=== PATIENT | male | born 1980 | race African-American/Black ===

== ENCOUNTER 2021-08-28 13:24 | Emergency (ER) | payer OTHER ==
[2021-08-28] MEDS ORDERED: LIDOCAINE HCL 2% (50ML VIAL) INF ONE (13:55)
[2021-08-28] MEDS ORDERED: DIPHTH,PERTUSS(ACELL),TET 0.5 ML DISP.SYRIN IM ONE ×2 (13:55→14:03)
[2021-08-28] MEDS ORDERED: LIDOCAINE HCL 2% (20ML MULTI-DOSE VIAL) ONE (14:03)
[2021-08-28 14:35] VITALS: BP 135/75; PULSE 73; TEMP 98.3; BMI 31.0
== END 2021-08-28 15:29 | disposition home or self-care (01) ==
LOC: FER 13:24
PROC: 3E0234Z Introduction of Serum, Toxoid and Vaccine into Muscle, Percutaneous Approach (ICD-10-PCS; principal; 2021-08-28)
DX: S61.012A Laceration without foreign body of left thumb without damage to nail, initial encounter (principal); W26.8XXA Contact with other sharp object(s), not elsewhere classified, initial encounter
CPT/HCPCS: 90715; 99284-25

== ENCOUNTER 2021-09-05 08:52 | Emergency (ER) | payer OTHER ==
[2021-09-05 08:59] VITALS: BP 117/74; PULSE 80; TEMP 99.3; BMI 30.9
== END 2021-09-05 09:08 | disposition home or self-care (01) ==
LOC: FER 08:52
DX: Z48.02 Encounter for removal of sutures (principal)
CPT/HCPCS: 99281-25